=== PATIENT | male | born 1990 ===

== ENCOUNTER 2025-07-30 16:04 | Emergency (ER) | payer MEDICAID, OTHER ==
[2025-07-30 16:40] LABS: #Basophils 0.09 10x3/uL (0.0-0.2); #Eosinophils 0.47 10x3/uL (0.0-0.7); #Monocytes 0.92 10x3/uL (0.11-0.59); #Neutrophils 4.54 10x3/uL (1.40-6.50); %Basophils 1.0 % (0.0-1.0); %Eosinophils 5.3 % (0.0-10.0); %Lymphocytes 31.1 % (21.0-51.0); %Monocytes 10.3 % (0.0-10.0); %Neutrophils 51.0 % (42.0-75.0); Hematocrit 42.4 % (42.0-52.0); Hemoglobin 14.7 g/dL (14.0-18.0); Mean Corpuscular Hemoglobin 30.8 pg (27.0-31.0); Mean Corpuscular Volume 88.9 fL (78.0-98.0); Platelet Count 307 10x3/uL (130-400); Red Blood Cell (RBC) Count 4.77 mill/uL (4.70-6.10); White Blood Cell (WBC) Count 8.91 10x3/uL (4.8-10.8)
[2025-07-30 17:01] LABS: Acetaminophen Less than 10 mcg/mL (Less than 10); Salicylate Less than 8.0 mg/dL (Less than 8.0)
[2025-07-30 17:02] LABS: ALT (SGPT) 92 U/L (Less than 45); AST (SGOT) 80 U/L (11-34); Albumin 3.9 g/dL (3.1-4.5); Alkaline Phosphatase 50 U/L (40-110); Anion Gap 15 mmol/L (10-20); BUN (Urea Nitrogen) 24 mg/dL (8.9-20.6); Bilirubin, Total 1.5 mg/dL (0.3-1.2); CK (CPK) 1173 U/L (30-200); Calc. Creatinine Clearance 0 mL/min (70-130); Calcium 8.6 mg/dL (7.8-10.44); Carbon Dioxide 21 mmol/L (22-29); Chloride 104 mmol/L (98-107); Globulin 3.2 g/dL (2.4-3.5); Glucose 122 mg/dL (70-105); Potassium 3.2 mmol/L (3.5-5.1); Sodium 137 mmol/L (136-145)
[2025-07-30 17:32] LABS: Bacteria/HPF None Seen HPF (None Seen); CAUTI Indications for Culture Alt mental st,lethar; Glucose, Urine (Dipstick) Normal (Negative); Leukocyte Negative Leu/uL (Negative); Protein, Urine (Dipstick) 100 mg/dL (Neg-Trace); RBC/HPF 0-3 HPF (0-3); Specific Gravity, Urine 1.040 (1.002-1.036); WBC/HPF 0-3 HPF (0-3)
[2025-07-30 17:34] LABS: Urine Culture Reflex No No
[2025-07-30 17:37] LABS: Cocaine Metabolite Screen Negative (Negative); THC/Cannabinoid Screen PRELIM POSITIVE (Negative); Tricyclic Screen Negative (Negative)
== END 2025-07-31 09:24 ==
LOC: ERS 16:04
DX: R45.851 Suicidal ideations (principal); F15.10 Other stimulant abuse, uncomplicated; F10.90 Alcohol use, unspecified, uncomplicated; S50.812A Abrasion of left forearm, initial encounter; S50.811A Abrasion of right forearm, initial encounter; W26.8XXA Contact with other sharp object(s), not elsewhere classified, initial encounter
CPT/HCPCS: 80053; 80306; 80307; 81001; 82550; 84484; 85025; 93005; 96374; 96375; 96376; J2060